=== PATIENT | female | born 1940 | race Caucasian/White ===

== ENCOUNTER 2019-03-23 10:42 | Outpatient (CLI) | payer MEDICARE ==
--- NOTE | 2019-03-23 16:47 | RAD ---
THORACIC SPINE TWO VIEWS: 03/23/19 No fracture or disc space narrowing was seen. A few minor anterior osteophytes are seen in the mid to lower thoracic region. No bony destructive lesions were seen. IMPRESSION: No acute findings. POS: HOME
--- NOTE | 2019-03-23 16:49 | RAD ---
LUMBAR SPINE THREE VIEWS: 03/23/19 No acute fracture was seen. 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 The latter appears to be due to some facet arthritis. I do not see any pars defects . The remaining disc spaces appear normal. There is a minor amount of anterior wedging of the T12 andre tebral body that does not appear acute. A vena cava filter and aortic stent are noted elsewhere on th e images. The SI joints are symmetrical. IMPRESSION: Overall, degenerative changes are rather mild for age. See findings listed above at L5-S1. POS: HOME
== END 2019-03-23 10:43 | disposition home or self-care (01) ==
LOC: BURRAD 10:42
PROVIDERS: ATTEND Internal Medicine
DX: M54.6 Pain in thoracic spine (principal); M43.17 Spondylolisthesis, lumbosacral region; M48.07 Spinal stenosis, lumbosacral region
CPT/HCPCS: 72070; 72100

== ENCOUNTER 2022-08-28 08:41 | Emergency (ER) | payer MEDICARE ==
[2022-08-28 09:18] LABS: #Lymphocytes 1.2 thou/uL (1.20-3.40); #Monocytes 0.1 thou/uL (0.11-0.59); #Neutrophils 1.5 thou/uL (1.40-6.50); %Basophils 0.5 % (0.0-1.0); %Lymphocytes 41.7 % (21.0-51.0); %Monocytes 2.3 % (0.0-10.0); %Neutrophils 54.5 % (42.0-75.0); MDiff Complete? YES; Manual Diff?? NO; Mean Corpuscular HGB CONC 32.7 g/dL (32.0-36.0); Mean Corpuscular Hemoglobin 33.6 pg (27.0-31.0); Mean Platelet Volume 8.1 fL (7.4-10.4); Platelet Count 379 10x3/uL (130-400); RBC Distribution Width 14.5 % (11.5-14.5); Red Blood Cell (RBC) Count 3.57 mill/uL (4.20-5.40); White Blood Cell (WBC) Count 2.8 10x3/uL (4.8-10.8)
[2022-08-28] MEDS ORDERED: Ondansetron PF 4 MG/2 ML Vial ONE (09:29)
[2022-08-28 09:33] LABS: ALT (SGPT) 10 U/L (8-55); AST (SGOT) 11 U/L (5-34); Albumin 3.6 g/dL (3.4-4.8); Alkaline Phosphatase 99 U/L (40-110); Anion Gap 19 mmol/L (10-20); BUN (Urea Nitrogen) 18 mg/dL (9.8-20.1); Bilirubin, Total 0.7 mg/dL (0.2-1.2); Calc. Creatinine Clearance 0 mL/min (70-130); Calcium 9.2 mg/dL (7.8-10.44); Carbon Dioxide 19 mmol/L (23-31); Chloride 100 mmol/L (98-107); Estimated GFR 46; Globulin 3.4 g/dL (2.4-3.5); Glucose 165 mg/dL (83-110); Lipase 33 U/L (8-78); Magnesium 1.4 mg/dL (1.6-2.6); Potassium 3.5 mmol/L (3.5-5.1); Sodium 134 mmol/L (136-145)
[2022-08-28 10:29] LABS: Bilirubin Negative (Negative); Blood, Urine Negative (Negative); Clarity Clear (Clear); Glucose, Urine (Dipstick) 100 mg/dL (Negative); Ketone, Urine Negative (Negative); Leukocyte Negative (Negative); Nitrite Negative (Negative); Protein, Urine (Dipstick) Negative (Neg-Trace); Urobilinogen 0.2 mg/dL (Less than 2)
== END 2022-08-28 11:34 | disposition home or self-care (01) ==
LOC: BURERS 08:41
DX: R11.0 Nausea (principal); E86.0 Dehydration; D72.819 Decreased white blood cell count, unspecified; E11.9 Type 2 diabetes mellitus without complications; I10 Essential (primary) hypertension
CPT/HCPCS: 36415; 80053; 81003; 83690; 83735; 84484; 85025; 93005; 96361; 96374; 96375; J1642; J2405

== ENCOUNTER 2024-06-11 18:18 | Emergency (ER) | payer MEDICARE ==
[2024-06-11] MEDS ORDERED: hydrALAZINE 20 MG/ML VIAL ONE ×3 (19:27→20:57)
[2024-06-11 19:37] LABS: #Basophils 0.1 thou/uL (0.0-0.2); #Eosinophils 0.1 thou/uL (0.0-0.7); #Lymphocytes 0.8 thou/uL (1.20-3.40); #Monocytes 0.9 thou/uL (0.11-0.59); #Neutrophils 4.9 thou/uL (1.40-6.50); %Eosinophils 1.1 % (0.0-10.0); %Lymphocytes 11.2 % (21.0-51.0); %Monocytes 13.4 % (0.0-10.0); %Neutrophils 73.2 % (42.0-75.0); Hematocrit 35.2 % (36.0-47.0); Hemoglobin 11.3 g/dL (12.0-16.0); Mean Corpuscular Hemoglobin 30.3 pg (27.0-31.0); Mean Corpuscular Volume 94.7 fl (78.0-98.0); Mean Platelet Volume 6.7 fL (7.4-10.4); Platelet Count 230 10x3/uL (130-400); RBC Distribution Width 12.8 % (11.5-14.5); Red Blood Cell (RBC) Count 3.72 mill/uL (4.20-5.40); White Blood Cell (WBC) Count 6.7 10x3/uL (4.8-10.8)
[2024-06-11 19:52] LABS: ALT (SGPT) 27 U/L (8-55); AST (SGOT) 37 U/L (5-34); Albumin 3.1 g/dL (3.4-4.8); Alkaline Phosphatase 128 U/L (40-110); Anion Gap 16 mmol/L (10-20); BUN (Urea Nitrogen) 21 mg/dL (9.8-20.1); Bilirubin, Total 0.3 mg/dL (0.2-1.2); Calc. Creatinine Clearance 0 mL/min (70-130); Calcium 8.9 mg/dL (7.8-10.44); Carbon Dioxide 20 mmol/L (23-31); Chloride 106 mmol/L (98-107); Estimated GFR 48; Globulin 3.9 g/dL (2.4-3.5); Glucose 119 mg/dL (83-110); Lipase 13 U/L (8-78); Magnesium 2.1 mg/dL (1.6-2.6); Potassium 4.3 mmol/L (3.5-5.1); Sodium 138 mmol/L (136-145)
[2024-06-11 19:53] LABS: Troponin I Less than 0.010 ng/mL (< 0.028)
[2024-06-11 20:43] LABS: Bilirubin Negative (Negative); Blood, Urine Negative (Negative); Clarity Clear (Clear); Glucose, Urine (Dipstick) Negative (Negative); Ketone, Urine Negative (Negative); Leukocyte Trace (Negative); Nitrite Negative (Negative); Protein, Urine (Dipstick) Negative (Neg-Trace); Specific Gravity, Urine 1.015 (1.005-1.030); Urobilinogen 0.2 mg/dL (Less than 2)
[2024-06-11 20:50] LABS: Bacteria/HPF Rare-Few HPF (None Seen); CAUTI Indications for Culture Alt mental st,lethar; RBC/HPF None Seen HPF (0-3); Squamous Epithelial 0-3 HPF (0-3); WBC/HPF 0-3 HPF (0-3)
[2024-06-11 20:51] LABS: Urine Culture Reflex No No
[2024-06-11] MEDS ORDERED: Labetalol HCl 100 MG/20 ML VIAL ONE (21:34)
== END 2024-06-11 22:24 | disposition home or self-care (01) ==
LOC: BURERS 18:18
DX: R42 Dizziness and giddiness (principal); I10 Essential (primary) hypertension; I48.91 Unspecified atrial fibrillation; E11.9 Type 2 diabetes mellitus without complications; Z79.899 Other long term (current) drug therapy
CPT/HCPCS: 71045; 74176; 80053; 81001; 83605; 83690; 83735; 84484; 85025; 87428; 93005; J0360; 36415; 96374; 96375; 96376

== ENCOUNTER 2024-10-19 14:15 | Outpatient (CLI) | payer MEDICARE | END 2024-10-19 14:16 | disposition home or self-care (01) | LOC: BURRAD 14:15 | PROVIDERS: ATTEND Nurse Practitioner | DX: J98.11 Atelectasis (principal) | CPT/HCPCS: 71046 ==